=== PATIENT | female | born 1945 | race Caucasian/White ===

== ENCOUNTER 2018-09-06 | Outpatient (CLI) | payer MEDICARE, OTHER | END 2018-09-06 21:37 | disposition critical access hospital (66) | CPT/HCPCS: A0425; A0429 ==

== ENCOUNTER 2018-09-06 21:47 | Emergency (ER) | payer MEDICARE, OTHER ==
--- NOTE | 2018-09-06 21:53 | ED Physician Documentation ---
PD HPI Fall - Stated complaint Stated Complaint: GLF - History obtained from History obtained from: Patient, EMS - History of Present Illness Mechanism of injury: Tripped Fall distance: Standing position Where injury occurred: Home Timing - onset: How many hours ago (2) Injury(ies) location: Left Uppper Extremity Quality of pain: Pain Associated symptoms: No: LOC, AMS, Amnesia Worsens with: Movement, Palpation Contributing factors: No: Anticoagulated, Intoxicated Similar symptoms before: Has not had sx before Recently seen: Not recently seen - Additional information Additional information: tripped and fell walking up her stairs at home, falling on to her left side. She c/o left shoulder pain. Denies other injury; denies head injury, denies neck pain Review of Systems Skin: denies: Abrasion (s), Laceration (s) Musculoskeletal: reports: Joint pain. denies: Neck pain, Back pain, Pain with weight bearing Neurologic: denies: Focal weakness, Numbness, Confused, Altered mental status, Headache, Head injury, LOC PD PAST MEDICAL HISTORY - Past Medical History Past Medical History: No - Present Medications Home Medications: Ambulatory Orders Medication Instructions Recorded Confirmed Cyclobenzaprine [Flexeril] 10 mg PO TID PRN #20 tablet 09/07/18 oxyCODONE [Roxicodone] 5 - 10 mg PO Q6H PRN #20 tablet 09/07/18 - Allergies Allergies/Adverse Reactions: Allergies Allergy/AdvReac Type Severity Reaction Status Date / Time morphine AdvReac Hallucinati Verified 09/06/18 23:41 ons - Living Situation Living Situation: reports: With family Living Arrangement: reports: At home - Social History Does the pt smoke?: No PD ED PE NORMAL - Vitals Vital signs reviewed: Yes - General General: Alert and oriented X 3, No acute distress, Well developed/nourished - HEENT HEENT: Atraumatic, PERRL, EOMI - Neck Neck: No bony TTP - Respiratory Respiratory: No respiratory distress, Clear bilaterally - Abdomen Abdomen: Soft, Non tender - Neuro Neuro: Alert and oriented X 3, junior designer 2-12 intact, No motor deficit, No sensory deficit, Normal speech Eye Opening: Spontaneous Motor: Obeys Commands Verbal: Oriented GCS Score: 15 PD ED PE EXPANDED - Extremities Extremities: Tenderness, Limited ROM, Left shoulder, Other (LTS intact left shoulder including left lateral deltoid. brisk capillary refill in left fingertips and strong left radial pulse. full strength in left hand (abduction of fingers, f/e wrist)) Results - Vitals Vitals: Vital Signs - 24 hr 09/06/18 09/06/18 21:45 23:57 Temperature 36.3 C L 36.4 C L Heart Rate 86 80 Respiratory 20 16 Rate Blood Pressure 159/98 H 125/96 H O2 Saturation 94 92 Oxygen O2 Source Room air - Rads (name of study) left shoulder xrays Radiology: Prelim report reviewed, See rad report PD MEDICAL DECISION MAKING - ED course Complexity details: reviewed results, re-evaluated patient, considered differential, d/w patient Departure - Departure Disposition: 01 Home, Self Care Clinical Impression: Proximal humeral fracture Condition: Good Instructions: ED Fx Shoulder, ED Sling Follow-Up: Antony Torres MD [Provider Admit Priv/Credential] - (Call to arrange for next available appointment. If possible, you should be reevaluated within the next 3-4 days) Prescriptions: Cyclobenzaprine [Flexeril] 10 mg PO TID PRN #20 tablet PRN Reason: Spasms oxyCODONE [Roxicodone] 5 - 10 mg PO Q6H PRN #20 tablet PRN Reason: Pain Discharge Date/Time: 09/07/18 01:00
[2018-09-06] MEDS ORDERED: HYDROmorphone 1 MG/ML CARPUJECT IVP STA ×2 (22:00→23:17)
--- NOTE | 2018-09-06 23:07 | XRAY Report ---
Reason: left shoulder injury, pain Procedure Date: 09/06/2018 Accession Number: [id number] / [id number] Procedure: XR - Shoulder 3 View LT CPT Code: FULL RESULT: EXAM: LEFT SHOULDER RADIOGRAPHY EXAM DATE: 09/06/2018 10:41 PM. CLINICAL HISTORY: Left shoulder injury, pain. COMPARISON: None. TECHNIQUE: 3 views. FINDINGS: Bones: Impacted fracture of humeral neck with angulation, comminution, and about 50% apposition of major fragments. Osteopenia. Otherwise unremarkable. Joints: Mild degenerative changes. Soft tissues: Clear visualized lung. IMPRESSION: Left humeral neck fracture. RADIA
[2018-09-06] MEDS ORDERED: CYCLOBENZAPRINE 10 MG TABLET PO STA (23:35)
[2018-09-06 23:58] VITALS: BP 125/96
[2018-09-07] MEDS ORDERED: oxyCODONE/ACET 5/325 Prepack 4 PO STA (00:38)
[2018-09-07] MEDS ORDERED: CYCLOBENZAPRINE 10 MG Prepack 2 PO PRN (00:38)
== END 2018-09-07 01:00 | disposition home or self-care (01) ==
LOC: ED 21:47
DX: S42.292A Other displaced fracture of upper end of left humerus, initial encounter for closed fracture (principal); W10.9XXA Fall (on) (from) unspecified stairs and steps, initial encounter; Y93.01 Activity, walking, marching and hiking; Y92.009 Unspecified place in unspecified non-institutional (private) residence as the place of occurrence of the external cause
CPT/HCPCS: 73030; 96374; 96376; 99283; 99284; A9270; J1170

== ENCOUNTER 2018-09-13 13:34 | Outpatient (CLI) | payer MEDICARE, OTHER ==
[2018-09-13 14:28] LABS: BASOPHILS % (AUTO) 0.4 %; EOSINOPHILS # (AUTO) 0.1 10^3/uL (0.0-0.7); EOSINOPHILS % (AUTO) 1.7 %; HGB - HEMOGLOBIN 12.3 g/dL (12.0-16.0); LYMPHOCYTES # (AUTO) 1.7 10^3/uL (1.5-3.5); LYMPHOCYTES % (AUTO) 21.2 %; MEAN CORPUSCULAR HEMOGLOBIN 28.8 pg (27.0-31.0); MEAN CORPUSCULAR HGB CONC 30.8 g/dL (32.0-36.0); MEAN CORPUSCULAR VOLUME 93.4 fL (81.0-99.0); MEAN PLATELET VOLUME 10.1 fL (7.9-10.8); MONOCYTES # (AUTO) 0.7 10^3/uL (0.0-1.0); MONOCYTES % (AUTO) 8.3 %; NEUTROPHILS # (AUTO) 5.4 10^3/uL (1.5-6.6); NEUTROPHILS % (AUTO) 68.1 %; PLT - PLATELET COUNT 352 10^3/uL (130-450); RED BLOOD COUNT 4.27 10^6/uL (4.20-5.40); RED CELL DISTRIBUTION WIDTH 12.4 % (12.0-15.0); WHITE BLOOD COUNT 7.9 x10^3/uL (4.8-10.8)
[2018-09-13 14:43] LABS: ALBUMIN 3.3 g/dL (3.2-5.5); ALBUMIN/GLOBULIN RATIO 0.9 (1.0-2.2); BILIRUBIN,TOTAL 0.7 mg/dL (0.2-1.0); CALCIUM 9.1 mg/dL (8.5-10.3); CREATININE 0.5 mg/dL (0.4-1.0); TOTAL PROTEIN 6.8 g/dL (6.7-8.2)
[2018-09-13 14:52] LABS: HB2 TOTAL 13.1 g/dL; HEMOGLOBIN A1C 0.45 g/dL; HEMOGLOBIN A1C % 5.3 % (4.6-6.2)
--- NOTE | 2018-09-14 13:16 | CT Report ---
Reason: UNSPECIFIED FRACTURE OF UPPER END OF UNSPECIFIED H Procedure Date: 09/13/2018 Accession Number: [id number] / [id number] Procedure: CT - UPPER EXTREMITY WO - LT CPT Code: FULL RESULT: EXAM: LEFT UPPER EXTREMITY CT WITHOUT CONTRAST EXAM DATE: 09/13/2018 02:00 PM. CLINICAL HISTORY: UNSPECIFIED FRACTURE OF UPPER END OF UNSPECIFIED HUMERUS. COMPARISON: SHOULDER 3 VIEW LT 09/11/2018 1:53 PM. TECHNIQUE: Thin-section axial images were acquired of the upper extremity from the humerus head to the elbow without contrast. Post-processing: Coronal and sagittal reformats. Other: None. In accordance with CT protocol optimization, one or more of the following dose reduction techniques were utilized for this exam: automated exposure control, adjustment of mA and/or KV based on patient size, or use of iterative reconstructive technique. FINDINGS: Bones: 1. Displaced proximal humerus transverse surgical neck fracture with 2 cm anterior displacement and 2.2 cm proximal displacement humerus shaft. 2. Superior to inferior displacement axillary recess of a 2.2 cm in AP dimension, 3.1 cm in height comminuted lesser tuberosity fracture. 3. Comminuted fracture greater tuberosity with 7 mm displacement. 4. Negative for glenoid fracture. 5. Nondisplaced fracture distal coracoid process. Anterior displacement greater tuberosity 1.5 cm in length cortical fracture fragment. Joints: Moderate hemarthrosis left shoulder. Negative for dislocation humerus head. Acromioclavicular joint is within normal limits. Musculature: Normal. No fatty atrophy. Other: None. IMPRESSION: 1. Comminuted Neer classification two-part fracture proximal humerus surgical neck with a 2.2 cm proximal displacement and 2 cm anterior displacement humerus shaft. 2. Comminuted fracture of the greater tuberosity with 7 mm displacement. 3. Moderate hemarthrosis. 4. Displaced axillary recess lesser tuberosity comminuted cortical fracture 2.2 x 3.1 cm. 5. Nondisplaced fracture distal coracoid process. 6. Inferior subluxation humerus head secondary to hemarthrosis and negative for humerus head dislocation. RADIA
== END 2018-09-13 13:35 | disposition home or self-care (01) ==
LOC: DI 13:34
PROVIDERS: ATTEND Orthopaedic Surgery Sports Medicine
DX: Z01.818 Encounter for other preprocedural examination (principal); S42.222A 2-part displaced fracture of surgical neck of left humerus, initial encounter for closed fracture; S42.252A Displaced fracture of greater tuberosity of left humerus, initial encounter for closed fracture; S42.262A Displaced fracture of lesser tuberosity of left humerus, initial encounter for closed fracture; S42.135A Nondisplaced fracture of coracoid process, left shoulder, initial encounter for closed fracture; Z79.899 Other long term (current) drug therapy; M25.012 Hemarthrosis, left shoulder
CPT/HCPCS: 36415; 80053; 83036; 85025; 93005

== ENCOUNTER 2018-09-17 11:24 | Outpatient (CLI) | payer MEDICARE, OTHER ==
[2018-09-17] MEDS ORDERED: GADOBUTROL 15 MMOL/15 ML VIAL ONE (16:47)
== END 2018-09-17 11:25 | disposition home or self-care (01) ==
LOC: DI 11:24
PROVIDERS: ATTEND Family Medicine
DX: Z01.810 Encounter for preprocedural cardiovascular examination (principal); C50.919 Malignant neoplasm of unspecified site of unspecified female breast; S42.209S Unspecified fracture of upper end of unspecified humerus, sequela; G45.4 Transient global amnesia; I27.20 Pulmonary hypertension, unspecified
CPT/HCPCS: 93306

== ENCOUNTER 2018-09-17 14:52 | Outpatient (CLI) | payer MEDICARE, OTHER ==
[2018-09-17] MEDS ORDERED: GADOBUTROL 15 MMOL/15 ML VIAL IVP ONE (16:52)
--- NOTE | 2018-09-18 03:46 | MRI Report ---
Reason: BREAST CANCER, TRANSIENT GLOBAL AMNESIA, UNSPECIFI Procedure Date: 09/17/2018 Accession Number: [id number] / [id number] Procedure: MRI - Brain W/WO CPT Code: FULL RESULT: EXAM: MRI BRAIN WITHOUT AND WITH CONTRAST EXAM DATE: 09/17/2018 05:04 PM. CLINICAL HISTORY: BREAST CANCER, TRANSIENT GLOBAL AMNESIA, UNSPECIFIED. COMPARISON: None. TECHNIQUE: Multiplanar, multisequence T1-weighted and fluid-sensitive MR sequences of the brain were performed. Sequences optimized for routine evaluation. Other: None. IV Contrast: . FINDINGS: Parenchyma: No acute hemorrhage, mass, or infarct. No white matter lesions identified. No abnormal enhancement. Mild T2/FLAIR hyperintensity is visualized throughout the periventricular white matter and central kody, nonspecific but likely secondary to chronic microvascular ischemia. Ventricles/Cisterns: No hydrocephalus. No abnormal extra-axial fluid collection or hemorrhage. Orbits: Symmetric and unremarkable. Sella Turcica: The pituitary gland, cavernous sinuses, suprasellar cistern and optic chiasm are unremarkable. IAC: Symmetric and unremarkable. Vasculature: Normal signal flow void is seen in the major arterial structures at the skull base. The dural sinuses are patent and enhance normally. Sinuses: No acute sinus disease. Bones: No focal pathologic appearing marrow signal changes. Other: None. IMPRESSION: 1. No evidence of intracranial metastatic disease. 2. Mild white matter changes typical of chronic microvascular ischemia. RADIA
--- NOTE | 2018-09-18 09:16 | Ultrasound Report ---
Reason: BREAST CANCER, TRANSIENT GLOBAL AMNESIA, UNSPECIFI Procedure Date: 09/17/2018 Accession Number: [id number] / [id number] Procedure: US - Carotid Doppler Complete CPT Code: FULL RESULT: EXAM: BILATERAL CAROTID AND VERTEBRAL ARTERY DUPLEX DOPPLER ULTRASOUND: EXAM DATE: 09/17/2018 03:20 PM CLINICAL HISTORY: Breast cancer, transient global amnesia, unspecified. COMPARISON: None. TECHNIQUE: Grayscale imaging, color Doppler, and duplex spectral Doppler were used to evaluate the carotid and vertebral arteries bilaterally. Static images were obtained. FINDINGS: Mild degree of plaque is seen in the common carotid and proximal internal and external arteries bilaterally. Normal antegrade flow is present in bilateral vertebral arteries. VELOCITIES: Right CCA mid: PSV 59 cm/sec CCA dist: PSV 68 cm/sec ICA prox: PSV 69 cm/sec, EDV 15 cm/sec ICA mid: PSV 73 cm/sec, EDV 26 cm/sec ICA dist: PSV 98 cm/sec, EDV 28 cm/sec ECA: PSV 76.3 cm/sec Vert: PSV 48 cm/sec ICA/CCA: 1.4 Left CCA mid: PSV 73 cm/sec CCA dist: PSV 63 cm/sec ICA prox: PSV 64 cm/sec, EDV 17 cm/sec ICA mid: PSV 76 cm/sec, EDV 26 cm/sec ICA dist: PSV 120 cm/sec, EDV 36 cm/sec ECA: PSV 102 cm/sec Vert: PSV 109 cm/sec ICA/CCA: 1.6 ICA diameter stenosis: Right: <50% by velocity and <70% by NASCET criteria. Left: <50% by velocity and <70% by NASCET criteria. IMPRESSION: 1. Mild bilateral carotid artery plaquing. 2. In the right carotid artery there are no elevated carotid artery velocities to suggest hemodynamically significant stenosis. 3. In the left carotid artery there are no elevated carotid artery velocities to suggest hemodynamically significant stenosis. 4. Normal antegrade flow is present in bilateral vertebral arteries. General Recommendations: Stenosis =50% ICA - Follow-up ultrasound 6-12 months Stenosis <50% ICA - High Risk Patient with plaque - Follow-up ultrasound 1-2 years Normal Study but High Risk Patient - Follow-up ultrasound 3-5 years Management recommendations and diagnostic criteria are based on current IAC endorsed standards in Carotid Artery Stenosis: Grayscale and Doppler Ultrasound Diagnosis. Validated velocity measurements with angiographic measurements and velocity criteria are extrapolated from diameter data as defined by the Society of Radiologists in Ultrasound Consensus Conference Radiology 2003; 229;340-346. RADIA
== END 2018-09-17 14:53 | disposition home or self-care (01) ==
LOC: DI 14:52
PROVIDERS: ATTEND Family Medicine
DX: C50.919 Malignant neoplasm of unspecified site of unspecified female breast (principal); S42.209S Unspecified fracture of upper end of unspecified humerus, sequela; I65.23 Occlusion and stenosis of bilateral carotid arteries; Z01.810 Encounter for preprocedural cardiovascular examination; I27.20 Pulmonary hypertension, unspecified
CPT/HCPCS: 70553; 93306; 93880; A9585

== ENCOUNTER 2018-09-19 06:15 | Day surgery (SDC) | payer MEDICARE, OTHER ==
[2018-09-19] MEDS ORDERED: LACTATED RINGERS 1,000 ML IV ONE ×2 (06:29→10:07)
--- NOTE | 2018-09-19 07:13 | ANESTHESIA ---
Pre-Anesthesia VS, & Labs - Diagnosis Left proximal humerous fracture - Procedure Left proximal humerous ORIF Vital Signs: Temp Pulse Resp BP Pulse Ox 36.8 C 93 17 132/90 H 97 09/19/18 06:45 09/19/18 06:45 09/19/18 06:45 09/19/18 06:45 09/19/18 06:45 Height 5 ft 6 in Weight (kg) 109 kg Body Mass Index 38.7 - NPO >8 hours - Is Patient ?: No Home Medications and Allergies Home Medications: Ambulatory Orders Acetaminophen [Tylenol Extra Strength] 500 mg PO Q6H PRN 09/18/18 Citalopram [CeleXA] 10 mg PO DAILY 09/18/18 Loratadine [Allergy] 10 mg PO DAILY 09/18/18 Phenylephrine HCl [Nasal Decongestant PE] 10 mg PO DAILY 09/18/18 Acetaminophen [Tylenol Extra Strength] 500 mg PO Q6H PRN 09/18/18 Citalopram [CeleXA] 10 mg PO DAILY 09/18/18 Loratadine [Allergy] 10 mg PO DAILY 09/18/18 Phenylephrine HCl [Nasal Decongestant PE] 10 mg PO DAILY 09/18/18 Allergies/Adverse Reactions: Allergies Allergy/AdvReac Type Severity Reaction Status Date / Time codeine Allergy Anaphylaxis Verified 09/18/18 10:23 morphine Allergy Anaphylaxis Verified 09/18/18 10:23 adhesive tape AdvReac blisters Verified 09/18/18 10:23 Anes History & Medical History - Anesthetic History Anesthesia Complications: reports: No previous complications - Medical History Cardiovascular: reports: Pulmonary embolism (2000 during cancer treatment) Pulmonary: reports: None Gastrointestinal: reports: GERD (occassionally), Other (History of gastric bypass 2003) Urinary: reports: Incontinence Neuro: reports: Other (transient global amnesic event, had negative work up) Musculoskeletal: reports: Osteoarthritis Endocrine/Autoimmune: reports: None Blood Disorders: reports: None Skin: reports: Eczema Smoking Status: Never smoker Psychosocial: reports: Depression Other Past Medical History: History of Right breast cancer s/p radiation and chemo - Surgical History General: Cholecystectomy Gynecologic: section, Other (Right lumpectomy for breast cancer X2) Orthopedic: Shoulder arthroplasty Exam General: Alert, Oriented x3, Cooperative, No acute distress Dental: WNL Mouth Openin Fingerbreadth Neck Mobility: Normal Mallampati classification: III Thyromental Distance: 4-6 cm Respiratory: Lungs clear, Normal breath sounds, No respiratory distress, No accessory muscle use Cardiovascular: Regular rate, Normal S1, Normal S2, No murmurs Mental/Cognitive Status: Alert/Oriented X3, Normal for patient Plan Anesthesia Type: General Consent for Procedure(s) Verified and Reviewed: Yes Code Status: Attempt Resuscitation ASA classification: 2-Mild systemic disease Is this case an emergency?: No
[2018-09-19] MEDS ORDERED: CEFAZOLIN SODIUM IN 0.9 % NACL 2 GM/100 ML BAG IV ONE (07:16)
[2018-09-19] MEDS ORDERED: BUPIVACAINE 0.25%-EPI 1:200000 PF 30 ML VIAL ONE (07:46)
[2018-09-19] MEDS ORDERED: BUPIVACAINE 0.25%-EPI 1:200000 PF 30 ML VIAL SUBQ ONE (09:22)
[2018-09-19] MEDS ORDERED: LIDOCAINE-MPF 2% 5 ML VIAL IM ONE (10:05)
[2018-09-19] MEDS ORDERED: DEXAMETHASONE 4 MG/ML VIAL IVP ONE (10:05)
[2018-09-19] MEDS ORDERED: ePHEDrine 50 MG/ML VIAL IVP ONE (10:05)
[2018-09-19] MEDS ORDERED: ROCURONIUM 50 MG/5 ML VIAL IVP ONE (10:05)
[2018-09-19] MEDS ORDERED: ACETAMINOPHEN 1,000 MG/100 ML 100 ML IV ONE (10:05)
[2018-09-19] MEDS ORDERED: fentaNYL 100 MCG/2 ML VIAL IVP ONE (10:05)
[2018-09-19] MEDS ORDERED: MIDAZOLAM 2 MG/2 ML VIAL IVP ONE (10:05)
[2018-09-19] MEDS ORDERED: ONDANSETRON 4 MG/2 ML VIAL IVP ONE (10:05)
[2018-09-19] MEDS ORDERED: PROPOFOL 200 MG/20 ML VIAL IVP ONE (10:05)
[2018-09-19] MEDS: fentaNYL 100 MCG/2 ML VIAL ONE ×2 (11:20→11:25)
[2018-09-19] MEDS ORDERED: oxyCODONE 5 MG TABLET PO PRN (11:24)
--- NOTE | 2018-09-19 11:24 | IMMEDIATE POSTOPERATIVE NOTE ---
Immediate Postoperative Note - Procedure Note Procedure Date: 09/19/18 Pre-Op Diagnosis: Left proximal humerus fracture Procedure: Left proximal humerus ORIF Post-Op Diagnosis: Same Mime Artist: None Anesthesia Type: General ET tube, Local Complications: No complications Estimated Blood Loss (in cc): 50 Plan of Care: Patient had a procedure well instrument sponge counts correct patient transferred to recovery room in stable condition will follow standard postoperative left proximal humerus ORIF protocol
[2018-09-19] MEDS ORDERED: KETOROLAC 30 MG/ML VIAL IVP ONE (11:35)
[2018-09-19] MEDS ORDERED: KETOROLAC 15 MG/ML VIAL ONE (11:42)
[2018-09-19] MEDS ORDERED: HYDROmorphone 0.5 MG/0.5 ML SYRINGE ONE (12:00)
[2018-09-19] MEDS ORDERED: oxyCODONE 5 MG TABLET ONE (12:39)
--- NOTE | 2018-09-19 12:44 | OPERATIVE REPORT ---
Headings info blanks DATE OF SERVICE: 09/19/2018 Physician: Antony Torres MD PREOPERATIVE DIAGNOSIS: * POSTOPERATIVE DIAGNOSIS: * PROCEDURE: * SURGEON: Antony Torres MD QUILL PICKING MACHINE OPERATOR: None. ANESTHESIA PROVIDER: Tom Gonzalez CRNA. ANESTHESIA TYPE: General endotracheal anesthesia as well as 30 mL 0.25% Marcaine with epinephrine local. FLUIDS: 1600 mL lactated Ringer's. ESTIMATED BLOOD LOSS: 50 mL. ORTHOPEDIC IMPLANTS: Synthes 3-hole new style proximal humerus locking plate with associated locking and nonlocking screws as well as #5 FiberWire x3. COMPRESSION DEVICE: Bilateral calf SCD boots. PREOPERATIVE ANTIBIOTICS: Weight-based IV Ancef. HISTORY OF PRESENT ILLNESS AND INDICATIONS: Patient is a 73-year-old female who sustained a left proximal humerus fracture a number of days ago. She is indicated for operative treatment given age, activity level, and fracture pattern and displacement. We previously reviewed risks, benefits, and alternatives with her and her , Khanh. Patient had appropriate risk stratification and optimization from medical standpoint by Dr. Rubin. After the above, patient was deemed to be maximally optimized, from a medical standpoint, for planned general anesthesia and major shoulder surgery. INTRAOPERATIVE FINDINGS: Patient is noted to have a comminuted proximal humerus fracture with some comminution of the greater tuberosity as well as the surgical neck of the humerus, was a large calcar fracture off. Post reduction, there is purposeful impaction of the shaft into the head to maintain bony contact. There is extraarticular hardware with good integrity of the fixation. There is some minimal thinning of the supraspinatus adjacent to the fracture fragments, though no full-thickness rotator cuff tear appreciated. Post reduction, head shaft angle is significantly improved, and there is no significant impingement of the plate on the subacromial space with passive range of motion. DETAILS OF PROCEDURE: On 09/19/2018, patient is identified in the preoperative care unit. She identifies her left shoulder as the operative site, signed by the operating surgeon. Patient received preoperative weight-based IV antibiotics. Patient is brought to the operating room. General anesthesia is administered. She is placed safely in a beach chair position with head, neck, and extremities in anatomically safe positions to avoid peripheral nerve stretch compression. Head and neck are protected. Patient's left upper extremity is then draped out, pre-scrubbed with Hibiclens solution and then alcohol, and then prepped and draped in the usual sterile fashion. At this time, a surgical pause identifies the left shoulder as the operative site. At this point, a deltopectoral incision is made through skin, spreading dissection carried out to the interval which is divided adjacent to the coronoid process, deltoid, and cephalic vein brought aside, and then the clavipectoral fascia is entered, and then a [place] retractor is gently retract against the conjoined tendon without exuberant retraction to avoid iatrogenic injury to adjacent nerve and against the deltoid. The area around the fracture is developed. A rongeur is used to remove scar tissue and hematoma. This is copiously irrigated. Fracture fragments are identified. The tendo-osseous junction of the subscapularis, supraspinatus, and infraspinatus are captured using #5 FiberWire, and at this point a reduction maneuver is performed using a [place] to improve the apex anterior angulation and appropriately impact the shaft into the head, at which point a Synthes proximal humerus locking plate is placed up against the bone after the FiberWires are placed through the holes in the plate. This is provisionally fixed with K-wires. This is done with multiple iterations with fluoroscopic image to improve reduction and maximize reduction. This forces the plate to be slightly proximal, though away from an area of impingement, and the screws are noted to be extraarticular once placed. At this point, the nonlocking screw is placed into the shaft. This helps reduction more so, and then locking screws are placed proximally. Fluoroscopic image confirms acceptable fracture and hardware in position, in which case remaining screws are filled with locking screws, unicortical proximally and bicortical distally. At this point, fluoroscopic image confirms appropriate fracture position and hardware position and lack of impingement with good shoulder range of motion and stability of the construct. At this point, sutures are tied over the plate and then oversewn so that they do not impinge. At this point, copious irrigation is performed. Deltopectoral interval is closed using 0 Vicryl, taking care to avoid injury to the cephalic vein, and skin is ultimately closed after repeat irrigation and hemostasis using 0 Vicryl, 2-0 Vicryl, and then interrupted nylon 3-0 sutures. Skin is washed, dried. Silver dressing is applied after local anesthesia is applied. Patient is placed in a shoulder immobilizer. Patient was extubated, and she tolerated the procedure well. Instrument and sponge counts are correct. She is transferred to recovery room in stable condition. Patient will follow standard postoperative left proximal humerus ORIF protocol. Patient will avoid active shoulder range of motion and avoid weightbearing left upper extremity. She would be on perioperative DVT prophylaxis with aspirin 81 mg daily, per Dr. Rubin. She will be on perioperative antibiotics for 24 hours and oxycodone, which she has been taking. She previously denied any contraindication to these medications and will use them as directed. Patient will follow up in 10-14 days, or sooner should problems or questions arise. Patient, Khanh, and friend had the case discussed postoperatively. The above was reviewed. Their questions are answered. They verbalize understanding and satisfaction with the plan. TD: 09/19/2018 11:54 SALONI
[2018-09-19 13:03] VITALS: BP 133/75
--- NOTE | 2018-09-19 14:35 | XRAY Report ---
Reason: ORIF OF PROXIMAL HUMERUS Procedure Date: 09/19/2018 Accession Number: [id number] / [id number] Procedure: XR - Humerus LT CPT Code: FULL RESULT: EXAM: FLUOROSCOPIC GUIDANCE EXAM DATE: 09/19/2018 11:00 AM. CLINICAL HISTORY: ORIF proximal humerus. COMPARISON: OR C-ARM PROCEDURE 09/19/2018 9:49 AM. HUMERUS LT 09/19/2018 9:49 AM. FINDINGS: A total of 3 fluoroscopic capture images demonstrate lateral plate and screw construct fixating a humeral neck fracture. The humeral head is relatively low riding but appears otherwise preserved in terms of glenohumeral relationship. Reportedly, images are of the left humerus. IMPRESSION: Fluoroscopic guidance provided for ORIF proximal humerus. Total fluoroscopy time: 0.4 minutes. Number of images: 3. GAYATRI
--- NOTE | 2018-09-19 14:35 | XRAY Report ---
Reason: ORIF PROXIMAL HUMERUS Procedure Date: 09/19/2018 Accession Number: [id number] / [id number] Procedure: FL - OR C-Arm Procedure CPT Code: FULL RESULT: EXAM: FLUOROSCOPIC GUIDANCE EXAM DATE: 09/19/2018 11:00 AM. CLINICAL HISTORY: ORIF proximal humerus. COMPARISON: OR C-ARM PROCEDURE 09/19/2018 9:49 AM. HUMERUS LT 09/19/2018 9:49 AM. FINDINGS: A total of 3 fluoroscopic capture images demonstrate lateral plate and screw construct fixating a humeral neck fracture. The humeral head is relatively low riding but appears otherwise preserved in terms of glenohumeral relationship. Reportedly, images are of the left humerus. IMPRESSION: Fluoroscopic guidance provided for ORIF proximal humerus. Total fluoroscopy time: 0.4 minutes. Number of images: 3. GAYATRI
== END 2018-09-19 06:16 | disposition home or self-care (01) ==
LOC: SDS 06:15
PROVIDERS: ATTEND Orthopaedic Surgery Sports Medicine
PROC: 0PSD04Z Reposition Left Humeral Head with Internal Fixation Device, Open Approach (ICD-10-PCS; principal; 2018-09-19 07:30)
DX: S42.212A Unspecified displaced fracture of surgical neck of left humerus, initial encounter for closed fracture (principal); S42.252A Displaced fracture of greater tuberosity of left humerus, initial encounter for closed fracture; E66.9 Obesity, unspecified; I10 Essential (primary) hypertension; Z85.3 Personal history of malignant neoplasm of breast; Z86.711 Personal history of pulmonary embolism; Z92.21 Personal history of antineoplastic chemotherapy; Z92.3 Personal history of irradiation; Z79.899 Other long term (current) drug therapy; Z68.38 Body mass index [BMI] 38.0-38.9, adult
CPT/HCPCS: 23615; 73060; A9270; C1713; J0131; J0690; J1170; J7120